=== PATIENT | female | born 1975 | race Caucasian/White ===

== ENCOUNTER 2023-04-13 06:36 | Inpatient (IN) | payer OTHER, SELFPAY ==
[2023-04-03 09:24] VITALS: BMI 30.4
[2023-04-03 10:17] LABS: INR 0.95; PT 12.9 Sec (11.4-14.6)
[2023-04-03 10:48] LABS: ALT (SGPT) 29 U/L (0-35); AST (SGOT) 25 U/L (14-36); Albumin 4.4 g/dl (3.5-5.0); Alkaline Phosphatase 87 U/L (38-126); Blood Urea Nitrogen 16 mg/dl (7-17); Calcium 9.5 mg/dl (8.4-10.2); Carbon Dioxide 28 mmol/L (22-30); Chloride 100 mmol/L (98-107); Estimated Creatinine Clearance 102 ml/min; Glucose 91 mg/dl (70-99); HDL Cholesterol 47 mg/dl; LDL Cholesterol, Calculated 126 mg/dl; Potassium 4.4 mmol/L (3.5-5.1); Sodium 138 mmol/L (135-145); Total Bilirubin 0.9 mg/dl (0.2-1.3); Total Cholesterol 222 mg/dl (50-199); Total Protein 7.7 g/dl (6.3-8.2); Triglyceride 248 mg/dl (10-149); Very Low Density Lipoprotein 49 mg/dl (0-30); eGFR > 60.00
[2023-04-03 11:04] LABS: Hematocrit 39.4 % (37.0-47.0); Hemoglobin 13.2 g/dL (12.0-16.0); Mean Corp Hgb Conc. 33.5 g/dL (33.0-37.0); Mean Corpuscular Volume 83.5 fL (81.0-99.0); Platelet Count 398 10^3/uL (130-400); Red Blood Cell Count 4.72 10^6/uL (4.20-5.40); Red Cell Dist. Width 13.4 % (11.5-14.5); White Blood Cell Count 6.8 10^3/uL (4.8-10.8)
[2023-04-03 11:14] LABS: Glycohemoglobin (HgbA1c) 5.9 % (4.0-5.6)
[2023-04-03 11:25] LABS: TSH Reflex To Free T4 1.04 uIU/ml (0.47-4.68)
[2023-04-13] VITALS (8 sets, daily range): BP systolic 0–133; BP diastolic 55–83; BMI 30.4
[2023-04-13] MEDS: NORMOSOL-R 1000 IV (11:27)
[2023-04-13] MEDS: ENTEREG 12 MG PO (11:29)
[2023-04-13] MEDS: NEURONTIN 600 MG PO (11:29)
[2023-04-13] MEDS: TYLENOL 1000 MG PO (11:29)
[2023-04-13] MEDS: HEPARIN 5000 UNITS SC (11:29)
--- NOTE | 2023-04-13 15:40 | W.IMMPOSTOP ---
Addendum entered and electronically signed by Yohannes Dowling MD 04/13/23 16:21:
Patient's , Sharad, updated via phone conversation.
Original Note:
Surgical Immed Post Op Note
-
Primary Surgeon: Nichole Dowling MD
Assisting Surgeon: MICHELLE Olivarez
Pre-op Diagnosis: sigmoid diverticulitis
Post-op Diagnosis: same
Procedure Performed: 1) robotic sigmoidectomy 2) flexible sigmoidoscopy
Anesthesia Type: general plus local
Specimen / Cultures: sigmoid colon
Estimated Blood Loss: 25 cc
Complications: no immediate
Operative Findings: distal sigmoid erythema/thickening
#19 Adal in pelvis.
Lockett in bladder.
Will send to med surg.
[2023-04-13] MEDS: D5LR 1000 IV (17:05)
[2023-04-13 17:11] LABS: % Basophils 0.1 % (0-2); % Eosinophils 0.1 % (0-6); % Immature Granulocytes 0.4 % (0-0.5); % Lymphocytes 2.8 % (20.5-51.1); % Monocytes 1.6 % (1.7-9.3); Absolute Immature Granulocytes 0.1 10^3/uL (0-0.05); Absolute Lymphocytes 0.5 10^3/uL (1.2-3.4); Absolute Monocytes 0.3 10^3/uL (0.1-0.6); Absolute Neutrophils 18.1 10^3/uL (1.4-6.5); Hematocrit 35.1 % (37.0-47.0); Mean Corp Hgb Conc. 34.2 g/dL (33.0-37.0); Mean Corpuscular Volume 84.8 fL (81.0-99.0); Nucleated Red Blood Cells % 0.1 %; Platelet Count 328 10^3/uL (130-400); Red Blood Cell Count 4.14 10^6/uL (4.20-5.40); Red Cell Dist. Width 13.4 % (11.5-14.5)
[2023-04-13 17:49] LABS: Blood Urea Nitrogen 8 mg/dl (7-17); Calcium 7.4 mg/dl (8.4-10.2); Carbon Dioxide 20 mmol/L (22-30); Chloride 101 mmol/L (98-107); Estimated Creatinine Clearance 119 ml/min; Glucose 165 mg/dl (70-99); Magnesium 2.6 mg/dl (1.6-2.3); Potassium 3.4 mmol/L (3.5-5.1); Sodium 133 mmol/L (135-145); eGFR > 60.00
[2023-04-13] MEDS: TORADOL 15 MG IV ×2 (17:51→23:50)
[2023-04-13] MEDS: ZOFRAN 4 MG IV (17:52)
--- NOTE | 2023-04-13 18:12 | PTCARENOTE ---
Patient admitted from [facility] post robotic sigmoidectomy secondary to diverticulitis.Vital signs are stable.The patient rates her pain at a 5 out of 10.All incisions are open to air with glue with no drainage.The patient is drowsy but arousable.Patient
complains of nausea after arriving to her room.Zofran was given as ordered.The patient is in her bed with the call zamora.
[2023-04-13] MEDS: TYLENOL 650 MG PO (21:43)
[2023-04-13] MEDS: MORPHINE SULFATE 2 MG IV (21:43)
[2023-04-13] MEDS: TYLENOL PO (23:45)
[2023-04-14] MEDS: D5LR 1000 IV (02:04)
[2023-04-14 03:00] VITALS: BP 101/60
[2023-04-14] MEDS: TYLENOL 650 MG PO ×5 (03:31→21:13)
[2023-04-14] MEDS: TORADOL 15 MG IV ×4 (05:55→23:40)
[2023-04-14 06:00] VITALS: BMI 30.2
[2023-04-14 06:29] LABS: % Basophils 0.1 % (0-2); % Immature Granulocytes 0.5 % (0-0.5); % Lymphocytes 4.9 % (20.5-51.1); % Monocytes 5.2 % (1.7-9.3); % Neutrophils 89.3 % (42.2-75.2); Absolute Immature Granulocytes 0.1 10^3/uL (0-0.05); Absolute Lymphocytes 0.7 10^3/uL (1.2-3.4); Absolute Monocytes 0.7 10^3/uL (0.1-0.6); Absolute Neutrophils 11.9 10^3/uL (1.4-6.5); Hematocrit 32.1 % (37.0-47.0); Hemoglobin 11.1 g/dL (12.0-16.0); Mean Corp Hgb Conc. 34.6 g/dL (33.0-37.0); Mean Corpuscular Hgb 28.5 pg (27.0-31.0); Mean Corpuscular Volume 82.3 fL (81.0-99.0); Mean Platelet Volume 9.1 fL (7.4-10.4); Nucleated Red Blood Cells % 0 %; Platelet Count 311 10^3/uL (130-400); Red Cell Dist. Width 13.8 % (11.5-14.5); White Blood Cell Count 13.3 10^3/uL (4.8-10.8)
--- NOTE | 2023-04-14 06:43 | PTCARENOTE ---
Pt ambulated short distance in campo. Tolerated well. Reports pain as tolerable. NEREIDA drain maintained. Lockett draining clear yellow. IVF infusing without incident. Tolerating sips/ice chips. Call zamora within reach. Will continue to closely
monitor.
[2023-04-14 07:01] LABS: Blood Urea Nitrogen 7 mg/dl (7-17); Calcium 8.2 mg/dl (8.4-10.2); Carbon Dioxide 24 mmol/L (22-30); Chloride 100 mmol/L (98-107); Estimated Creatinine Clearance 118 ml/min; Glucose 143 mg/dl (70-99); Magnesium 2.3 mg/dl (1.6-2.3); Potassium 4.1 mmol/L (3.5-5.1); Sodium 134 mmol/L (135-145); eGFR > 60.00
[2023-04-14 08:00] VITALS: BP 105/51
[2023-04-14] MEDS: PROTONIX 40 MG PO (08:42)
--- NOTE | 2023-04-14 09:49 | W.PN.CRS1 ---
Addendum entered and electronically signed by Yohannes Dowling MD 04/14/23 13:15:
Of note, patient has mild hyponatremia.
Addendum entered and electronically signed by Yohannes Dowling MD 04/14/23 13:11:
I saw and examined the patient.
The PA's note was reviewed and I agree with the note.
Comment:
Patient seen in a.m. with PA.
No complaints. In good spirits. Thirsty.
Vitals reasonable. White count 13.3. Hemoglobin 11.1.
Abdomen mildly distended. Incisions look good. NEREIDA with serosanguineous fluid.
Out of bed.
DC Peres.
Start Lovenox.
Original Note:
Today's Communication / Plan
-
d/c peres
clears
lovenox
Assessment/Plan
-
POD#1 1) robotic sigmoidectomy 2) flexible sigmoidoscopy
1. Vitals normal.
2. WBC 13.3 - as expected post op.
3. Continue NEREIDA drain until discharge.
4. OOB as tolerated.
5. Start on a clear liquid diet.
6. D/C peres.
7. OR pathology pending.
8. Pain medication: Tylenol/Toradol standing, morphine PRN.
Subjective Data
Procedure
04/13/2023 - 1) robotic sigmoidectomy 2) flexible sigmoidoscopy
Subjective Data
Date of Service: April 14, 2023
Patient states she is thirsty. She denies nausea or vomiting. Her pain is controlled. She has no complaints.
Objective Data
-
Vital Signs
Temp Pulse Resp BP Pulse Ox
98.4 F 77 16 105/51 95
04/14/23 08:00 04/14/23 08:00 04/14/23 08:00 04/14/23 08:00 04/14/23 08:00
Intake & Output
04/13/23 04/14/23 04/15/23
06:59 06:59 06:59
Intake Total 1640 / 1640
Output Total 3210 / 3210
Balance -1570 / -1570
Intake:
Oral fluids 240 / 240
IV fluids (Total) 1400 / 1400
Normosol 200 / 200
Output:
Drain Output (Total) 85 / 85
Right Lower Abdomen 85 / 85
Urine, Peres 3125 / 3125
Lab Results
04/14/23 05:30
04/14/23 05:30
Physical Exam
-
General: No Acute Distress and AOx3
Abdomen: Soft, Non Distended and Non Tender
Skin: Warm and Dry
Incision: Clear, Dry, Intact
--- NOTE | 2023-04-14 10:22 | CM ---
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
Pharmacy is [facility] in [place] and PCP is Dr. Bessy Pineda. She does not have POA or advanced directive. Anticipate home with no needs. Patient in agreement.
[2023-04-14 11:23] VITALS: BP 105/60
--- NOTE | 2023-04-14 12:12 | PN.CDI ---
CDI
- -
CDI:
Physician Documentation Request
Admit Date: 04/13/23 06:36
Dear Doctor /PA,
Please review the following and provide your response in the progress notes.
Clinical Indicators:
Pt admitted with scheduled Sigmoidectomy for sigmoid diverticulitis
Sodium levels are as below /Pt did get IVFs/ D5LR IVFs
04/13/23 04/14/23
16:57 05:30
Sodium 133 L 134 L
Based on the above, could you clarify in the progress notes, the appropriate diagnosis, if significant, that supports the above abnormalities and additional evaluation, monitoring and/or treatment rendered:
Hyponatremia
Abnormal lab value only
Other
Use of terms such as suspected, likely, concern for, or probable (associated with a specific diagnosis that is being evaluated, monitored, or treated as if it exists) are acceptable and can be coded in the inpatient setting, when documented at the
time of discharge.
Thank you,
Lola Smyth RN
CDI Specialist
[place] [facility]
Please use your independent medical judgment in providing your response.
[2023-04-14] MEDS: D5LR IV ×2 (12:26→23:39)
[2023-04-14 15:47] VITALS: BP 115/61
[2023-04-14] MEDS: LOVENOX 40 MG SC (17:26)
[2023-04-14 23:30] VITALS: BP 121/59
[2023-04-14] MEDS: FLUSH (NSS) 2 FLUSH IV (23:39)
[2023-04-15] MEDS: TYLENOL PO (01:34)
[2023-04-15] MEDS: TYLENOL 650 MG PO ×6 (03:36→23:29)
[2023-04-15 05:24] VITALS: BMI 29.9
[2023-04-15] MEDS: TORADOL 15 MG IV ×4 (05:38→23:29)
[2023-04-15] MEDS: FLUSH (NSS) 2 FLUSH IV ×2 (05:39→23:28)
[2023-04-15] MEDS: MYLICON 80 MG PO (06:03)
[2023-04-15 06:26] LABS: % Basophils 0.3 % (0-2); % Eosinophils 0.5 % (0-6); % Immature Granulocytes 0.3 % (0-0.5); % Lymphocytes 18.8 % (20.5-51.1); % Neutrophils 73.1 % (42.2-75.2); Absolute Eosinophils 0.1 10^3/uL (0-0.7); Absolute Lymphocytes 1.9 10^3/uL (1.2-3.4); Absolute Monocytes 0.7 10^3/uL (0.1-0.6); Absolute Neutrophils 7.3 10^3/uL (1.4-6.5); Hematocrit 33.3 % (37.0-47.0); Mean Corpuscular Hgb 28.4 pg (27.0-31.0); Mean Platelet Volume 9.6 fL (7.4-10.4); Nucleated Red Blood Cells % 0 %; Platelet Count 305 10^3/uL (130-400); Red Blood Cell Count 3.87 10^6/uL (4.20-5.40)
--- NOTE | 2023-04-15 06:29 | PTCARENOTE ---
Patient ambulating throughout halls. NEREIDA draining serosang fluid. Patient voiding well. She is tolerating clear liquids. C/o gas pain this am. Simethicone as per order by RICKY, [facility].
[2023-04-15 07:51] VITALS: BP 129/69
[2023-04-15] MEDS: PROTONIX 40 MG PO (07:54)
--- NOTE | 2023-04-15 08:59 | W.PN.CRS1 ---
Today's Communication / Plan
-
Continue clears for now
Reassess later today
Assessment/Plan
-
POD#2 1) robotic sigmoidectomy 2) flexible sigmoidoscopy
1. Vitals normal.
2. WBC 10.0, normalized.
3. Continue NEREIDA drain until discharge.
4. OOB as tolerated.
5. Continue on a clear liquid diet this morning. Will reevaluate early afternoon.
6. Voiding post Lockett removal
7. OR pathology pending.
8. Pain medication: Tylenol/Toradol standing, change morphine IV as needed.
9. Of note, the patient had slight hyponatremia postoperatively, with a sodium of 133.
Subjective Data
Procedure
04/13/2023 - 1) robotic sigmoidectomy 2) flexible sigmoidoscopy
Subjective Data
Date of Service: April 15, 2023
Patient states she feels some mild pain around her incisions. She feels bloated. She has no nausea or vomiting. She states she has some flatus when she lays down. She has no bowel movements yet.
Objective Data
-
Vital Signs
Temp Pulse Resp BP Pulse Ox
98.1 F 70 18 129/69 96
04/15/23 07:51 04/15/23 07:51 04/15/23 07:51 04/15/23 07:51 04/15/23 07:51
Intake & Output
04/14/23 04/15/23 04/16/23
06:59 06:59 06:59
Intake Total 1640 / 1640 1440 / 1440
Output Total 3210 / 3210 2037
Balance -1570 / -1570 -598 / -598
Intake:
Oral fluids 240 / 240 1440 / 1440
IV fluids (Total) 1400 / 1400
Normosol 200 / 200
Output:
Drain Output (Total)
Right Lower Abdomen
Urine, Lockett 3125 / 3125 1600 / 1600
Urine, Voided 400 / 400
Other:
Number of approximated MODERATE 3
amounts of urine
Lab Results
04/15/23 05:22
04/14/23 05:30
Physical Exam
-
General: No Acute Distress and AOx3
Abdomen: Soft, Distended (Slight), Non Tender and Other (NEREIDA drain with serous output)
Skin: Warm and Dry
Incision: Clear, Dry, Intact
[2023-04-15 15:30] VITALS: BP 115/74
[2023-04-15] MEDS: LOVENOX SC (17:34)
[2023-04-15 23:30] VITALS: BP 120/68
[2023-04-16] MEDS: TYLENOL 650 MG PO ×3 (03:08→13:13)
[2023-04-16 06:00] VITALS: BMI 29.4
[2023-04-16] MEDS: FLUSH (NSS) 2 FLUSH IV (06:15)
[2023-04-16] MEDS: TORADOL 15 MG IV ×2 (06:15→13:13)
[2023-04-16 07:45] VITALS: BP 126/78
[2023-04-16] MEDS: PROTONIX 40 MG PO (08:44)
--- NOTE | 2023-04-16 10:28 | PTCARENOTE ---
pt frequently walks halls, eligio n/v belly still a little distended,no bm, passing gas upgraded to Low residue, pain controlled APAP and Toradol. NEREIDA drain removed. TGH if tolerates
--- NOTE | 2023-04-16 11:39 | W.PN.CRS1 ---
Today's Communication / Plan
-
low residue
discharge
Assessment/Plan
-
POD#3 1) robotic sigmoidectomy 2) flexible sigmoidoscopy
1. Vitals normal.
2. NEREIDA drain discontinued at bedside.
3. Advance diet to low residue.
4. OOB as tolerated.
5.� Continue on a clear liquid diet this morning.� Will reevaluate early afternoon.
6.�OR pathology pending.
7. Pain medication: Tylenol/Toradol standing, Morphine PRN.
8. Okay for discharge today. All discharge instructions discussed with patient including medications, activity levels and follow up. All questions answered.
Subjective Data
Procedure
04/13/2023 - 1) robotic sigmoidectomy 2) flexible sigmoidoscopy
Subjective Data
Date of Service: April 16, 2023
Patient states she has flatus. She is walking around the halls. She feels well. Her pain is controlled. She is tolerating a diet.
Objective Data
-
Vital Signs
Temp Pulse Resp BP Pulse Ox
98.4 F 80 18 126/78 98
04/16/23 07:45 04/16/23 07:45 04/16/23 07:45 04/16/23 07:45 04/16/23 07:45
Intake & Output
04/15/23 04/16/23 04/17/23
06:59 06:59 06:59
Intake Total 1440 / 1440 1979
Output Total 2037
Balance -598 / -598 1889
Intake:
Oral fluids 1440 / 1440 1979
Output:
Drain Output (Total)
Right Lower Abdomen
Urine, Lockett 1600 / 1600
Urine, Voided 400 / 400
Other:
Number of approximated SMALL 1
amounts of urine
Number of approximated MODERATE 3 4
amounts of urine
Lab Results
04/15/23 05:22
04/14/23 05:30
Physical Exam
-
General: No Acute Distress and AOx3
Abdomen: Soft, Non Distended, Non Tender and Other (NEREIDA drain serous)
Incision: Clear, Dry, Intact
--- NOTE | 2023-04-16 11:46 | W.DS.TRANS ---
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
-
Discharge Instructions:
Sleep Apnea Risk Low
Discharge Diagnosis/Procedures s/p robotic sigmoidectomy
Diet Low Residue
Activity No strenuous activity
Additional Activity No lifting over 10lbs
Driving Restrictions Not until seen by your Dr
Bathing Restrictions OK to Shower
Wound Care Allow glue to naturally fall off. Do not pick at
incisions.
Instructions: Low Fiber Diet
Stand-Alone Forms:
Changes to Home Medications: Yes
Discharge Medications:
DC Medications w/original date entered in [employer]
Vitamin C: 1 tab PO DAILY Supplement 05/04/21
acetaminophen 325 mg tablet (Tylenol) 650 mg PO Q6H PRN pain 04/11/23
multivitamin 1 tab PO DAILY Supplement 04/11/23
acetaminophen 300 mg-codeine 15 mg tablet 1 tab PO Q6H PRN Pain #20 tabs 04/16/23
Home Medication Changes
acetaminophen 300 mg-codeine 15 mg tablet 1 tab PO Q6H PRN Pain #20 tabs 04/16/23
Pending Results: Yes
Additional Pending Results:
OR pathology
--- NOTE | 2023-04-16 13:30 | CM ---
Chart reviewed plan is home today no needs.
Plan; Home no needs.
--- NOTE | 2023-04-16 15:17 | PTCARENOTE ---
pt left with out signing d/c. no issues thir were just many questions from family members and questions where to go, dressings etc
== END 2023-04-16 15:19 | disposition home or self-care (01) | DRG 330 ==
LOC: 2 SOUTH 06:36
PROVIDERS: Physician Assistant; ADMITTING PHYSICIAN Surgery; FAMILY PHYSICIAN Nurse Practitioner Family
PROC: 0DTN0ZZ Resection of Sigmoid Colon, Open Approach (ICD-10-PCS; 2023-04-14)
PROC: 8E0W0CZ Robotic Assisted Procedure of Trunk Region, Open Approach (ICD-10-PCS; 2023-04-14)
DX: K57.32 Diverticulitis of large intestine without perforation or abscess without bleeding (principal); D62 Acute posthemorrhagic anemia; E87.1 Hypo-osmolality and hyponatremia
CPT/HCPCS: 88307; 36415; 80048; 80053; 80061; 83036; 83735; 84443; 85025; 85027; 85610; 85730; 86850; 86900; 86901; 93005; J1335

== ENCOUNTER 2023-10-04 10:32 | Day surgery (SDC) | payer OTHER, SELFPAY ==
[2023-10-04] VITALS (9 sets, daily range): BP systolic 118–139; BP diastolic 64–85; BMI 31.5
--- NOTE | 2023-10-04 09:06 | ED.GENMED ---
History of Present Illness
General
Chief Complaint: Throat Problem
Source: patient
Exam Limitations: none
Time Seen by Provider: 10/04/23 08:42
Nursing documentation reviewed up to this point in time: agreed with
History of Present Illness
History of Present Illness:
48 y/o F with h/o hiatal hernia, divertic s/p lap sigmoidectomy, previuos food bolus
here after eating pork last night, felt it was small enough to pass but then drank water right after and says she coughed while drinking and since then she cannot really tolerate liquids
she brought up the water in her mouth and spit it out.
now when she tries to drink, she feels it sitting in her chest, cold feeling
she has not had any regurgitation but she did gag while brushing her teeth
she has had issues like this before and required endoscopy
dr. wilkins is her GI
she called and left message
no fever, coughing, sob
Past History
Past History
ED Past Medical History: GERD and Other (Diverticulitis)
ED Past Surgical History:
Social History
Tobacco: Non-smoker
Alcohol: None
Drug: None
Personal:
Living: with family
Review of Systems
Review of Systems
Allergies reviewed?: Yes
All Other Systems: Not applicable
Phy Exam
Physical Exam
Physical Exam:
GENERAL: Alert , in no apparent distress, speaking full sentences
EYE: pupils equal and reactive
NECK: Supple
ENT: o/p clr, mmm.
CARDIAC: Regular rate and rhythm .
LUNGS: Clear breath sounds bilaterally, no acute respiratory distress, no wheezes/rales/rhonchi
ABDOMEN: Soft, without focal tenderness, no r/g, no cvat, normal bowel sounds
NEUROLOGICAL: Alert and oriented, no focal neuro deficits
SKIN: Warm and dry, skin intact.
MUSCULOSKELETAL: No edema, well perfused. neg nida's sign
PSYCH: Normal and appropriate interaction.
Course
Orders/Labs/Results
Orders:
Orders
10/04/23 08:51
Glucagon [GlucaGen] 1 mg IV NOW STA
10/04/23 08:52
Electrocardiogram (*1) Urgent
Reason for Study: Chest Pain
EKG- Treatment ONCE
CR Chest - 2 Views Urgent
Comment:
Reason For Exam: SWALLOWED PORK, ? ASPIRATION VS. FOOD BOLUS
10/04/23 09:04
Complete Blood Count/With Diff Urgent
Comprehensive Metabolic Panel Urgent
10/04/23 09:39
Propofol [Diprivan] 60 ml .ROUTE .STK-MED
Succinylcholine Chloride [Succinylcholine] 200 mg .ROUTE .STK-MED ONE
Abnormal Lab Results
10/04/23
09:04
Abs Immat Gran (auto) 0.1 H 10^3/uL
(0-0.05)
Immature Gran % 0.7 H %
(0-0.5)
Lymphocytes % 16.6 L %
(20.5-51.1)
10/04/23 09:04
10/04/23 09:04
Vital Signs
Initial and Last Documented VS:
Initial Vital Signs
Temp Pulse Resp BP Pulse Ox
97.7 F 81 16 130/85 98
10/04/23 08:37 10/04/23 08:37 10/04/23 08:37 10/04/23 08:37 10/04/23 08:37
Last Documented Vital Signs
Temp Pulse Resp BP Pulse Ox
97.7 F 81 16 139/85 97
10/04/23 08:37 10/04/23 08:37 10/04/23 08:37 10/04/23 09:14 10/04/23 09:15
MDM/Problems Addressed
Differential Diagnosis Includes:
Food bolus impaction, aspiration
MDM/Problems Addressed:
48-year-old female with a history of hiatal hernia and previous esophageal food bolus requiring an endoscopy presents for symptoms similar to her last food bolus
After eating pork last night. Patient says she drank some water immediately following that and then coughed slightly and since has not felt right. When she tries to drink she feels that getting stuck in her upper chest. It feels cold as well.
She has gagged a few times but has not fully regurgitated. She has not otherwise really tried to tolerate anything p.o. This feels very similar to the time she needed to have an endoscopy. She is not coughing or feeling short of breath. On exam
she is well-appearing, not uncomfortable, tolerating her secretions well, heart and lung sound clear. I watched her swallow several ounces of water and her voice got a little bit deeper and she felt uncomfortable but she had no regurgitation.
Patient did have some nausea following that as well. Patient received a dose of IV glucagon with no improvement. I spoke with the GI attending Dr.k tsang who will take the patient to the GI lab.
Patient's chest x-ray was independently reviewed by me and negative for any signs of aspiration pneumonia
*Critical Care Note
Total Time (30-74mins, 75-104mins- exclusive of procedures): Not Applicable
ED Attending Note
-
Portions of this chart may have been created with voice recognition software.� Occasional wrong word or��sound alike� substitutions may have occurred due to the inherent limitations of voice recognition software.
Discharge Plan
Departure
Patient Disposition: GI LAB
Date of Disposition: 10/04/23
Time of Disposition: 09:45
Admit to: GI lab
Presentation/result/management discussed w/ accepting MD/DO: ronak
Patient with high blood pressure during this ER visit?: No
Covid-19: Not Applicable
Discharge Problem:
Food bolus obstruction of intestine
Prescriptions:
No Action
Vitamin C:
1 tab PO DAILY
multivitamin Tablet
1 tab PO DAILY
acetaminophen [Tylenol] 325 mg Tablet
650 mg PO Q6H PRN (Reason: pain)
acetaminophen-codeine 300-15 mg tablet
1 tab PO Q6H PRN (Reason: Pain) Qty: 20 0RF
Referrals:
Bessy Pineda CRNP [Family Provider] -
Interventions
Interventions:
*Risk Screen - Suicide Last Done: 10/04/23 09:22
*Neglect/Abuse Screening Last Done: 10/04/23 09:22
ED-EENT Assessment Last Done: 10/04/23 09:22
ED- Pulmonary Assessment Last Done: 10/04/23 09:23
Discharge Date and Time
Print Language: TAMAZIGHT
[2023-10-04] MEDS: GlucaGen 1 MG IV (09:15)
[2023-10-04 09:21] LABS: % Basophils 0.9 % (0-2); % Eosinophils 3.9 % (0-6); % Immature Granulocytes 0.7 % (0-0.5); % Lymphocytes 16.6 % (20.5-51.1); % Monocytes 5.5 % (1.7-9.3); % Neutrophils 72.4 % (42.2-75.2); Absolute Basophils 0.1 10^3/uL (0-0.2); Absolute Eosinophils 0.3 10^3/uL (0-0.7); Absolute Immature Granulocytes 0.1 10^3/uL (0-0.05); Absolute Lymphocytes 1.3 10^3/uL (1.2-3.4); Absolute Monocytes 0.4 10^3/uL (0.1-0.6); Absolute Neutrophils 5.8 10^3/uL (1.4-6.5); Hematocrit 37.5 % (37.0-47.0); Hemoglobin 12.6 g/dL (12.0-16.0); Mean Corp Hgb Conc. 33.6 g/dL (33.0-37.0); Mean Corpuscular Hgb 27.6 pg (27.0-31.0); Mean Corpuscular Volume 82.2 fL (81.0-99.0); Mean Platelet Volume 8.9 fL (7.4-10.4); Nucleated Red Blood Cells % 0 %; Platelet Count 343 10^3/uL (130-400); Red Blood Cell Count 4.56 10^6/uL (4.20-5.40); Red Cell Dist. Width 12.9 % (11.5-14.5); White Blood Cell Count 8.1 10^3/uL (4.8-10.8)
[2023-10-04 09:33] LABS: ALT (SGPT) 16 U/L (0-35); AST (SGOT) 20 U/L (14-36); Albumin 4.6 g/dl (3.5-5.0); Alkaline Phosphatase 92 U/L (38-126); Blood Urea Nitrogen 12 mg/dl (7-17); Calcium 9.1 mg/dl (8.4-10.2); Carbon Dioxide 23 mmol/L (22-30); Chloride 104 mmol/L (98-107); Estimated Creatinine Clearance 101 ml/min; Glucose 95 mg/dl (70-99); Sodium 138 mmol/L (135-145); Total Bilirubin 0.8 mg/dl (0.2-1.3); Total Protein 7.4 g/dl (6.3-8.2); eGFR > 60.00
--- NOTE | 2023-10-04 10:05 | CON.GI ---
Consultation
-
Date/Time Consultation Requested: 10/04/2023
Date/Time Consultation Performed: 10/04/2023
Requesting Provider: ED
Performing Provider: [place]
Reason for Consultation: food imapction
Medical History
Chief Complaint / HPI
Chief Complaint: food impaction
History of Present Illness:
48 y/o F with h/o EoE not on any Rx, hiatal hernia, diverticular disease s/p lap sigmoidectomy, prior food bolus here c/o after eating pork last night, felt it got caught in the middle of her chest . Unable to tolerate liquid,.
Denies any chest pain/ SOB
Past Medical History
Past Medical History: Other (eoe, diverticular disease )
Allergies / Home Medications
Allergy/AdvReac Type Severity Reaction Status Date / Time
ciprofloxacin [From Cipro] Allergy heart Verified 10/04/23 08:39
palpitations
oxycodone [From Percocet] Allergy Rash Verified 10/04/23 08:39
tramadol [From Ultram] Allergy butterfly Verified 10/04/23 08:39
Rash
�Medication �Instructions �Recorded
Vitamin C: 1 tab PO DAILY Supplement 05/04/21
acetaminophen 325 mg tablet 650 mg PO Q6H PRN pain 04/11/23
(Tylenol)
multivitamin 1 tab PO DAILY Supplement 04/11/23
acetaminophen 300 mg-codeine 15 mg 1 tab PO Q6H PRN Pain #20 tabs 04/16/23
tablet
Review of Systems
-
All other systems: A 12 pt ROS was Negative except as stated above in HPI
Vital Signs
Temp Pulse Resp BP Pulse Ox
97.7 F 81 16 139/85 96
10/04/23 08:37 10/04/23 08:37 10/04/23 08:37 10/04/23 09:14 10/04/23 09:30
Physical Exam
Exam
General: Well Developed and No Apparent Distress
Respiratory: Clear
Cardiac: S1/S2
GI: Soft, Non Tender, Non Distended and Normal Bowel Sounds
Results
WBC 8.1 10^3/uL (4.8-10.8) 10/04/23 09:04
Hgb 12.6 g/dL (12.0-16.0) 10/04/23 09:04
Hct 37.5 % (37.0-47.0) 10/04/23 09:04
MCV 82.2 fL (81.0-99.0) 10/04/23 09:04
Plt Count 343 10^3/uL (130-400) 10/04/23 09:04
Absolute Neuts (auto) 5.8 10^3/uL (1.4-6.5) 10/04/23 09:04
Sodium 138 mmol/L (135-145) 10/04/23 09:04
Potassium 4.0 mmol/L (3.5-5.1) 10/04/23 09:04
Chloride 104 mmol/L (98-107) 10/04/23 09:04
Carbon Dioxide 23 mmol/L (22-30) 10/04/23 09:04
BUN 12 mg/dl (7-17) 10/04/23 09:04
Creatinine 0.7 mg/dL (0.6-1.0) 10/04/23 09:04
Calcium 9.1 mg/dl (8.4-10.2) 10/04/23 09:04
Total Bilirubin 0.8 mg/dl (0.2-1.3) 10/04/23 09:04
AST 20 U/L (14-36) 10/04/23 09:04
ALT 16 U/L (0-35) 10/04/23 09:04
Alkaline Phosphatase 92 U/L (38-126) 10/04/23 09:04
Diagnostic Image Results:
Prior GI Procedures:
EGD: 2022 with - bx- suggestuive of EoE
Colonoscopy:
Assessment / Plan
-
48 y/o female with hx of EoE with food impaction after eating dinner last night.
--Food impaction/ EoE
plan
urgent EGD
Total Time Spent with Patient (in minutes): 55
-
-
Thank you for consultation and allowing me to participate in the patient's care. Please call the honest john rocket crew member GI physician during the after hours with any questions or concerns.
== END 2023-10-04 12:25 | disposition home or self-care (01) ==
LOC: GI 10:32
PROVIDERS: Physician Assistant; ATTENDING PHYSICIAN Internal Medicine Gastroenterology; EMERGENCY PHYSICIAN Emergency Medicine; FAMILY PHYSICIAN Nurse Practitioner Family
DX: T18.128A Food in esophagus causing other injury, initial encounter (principal); W44.F3XA Food entering into or through a natural orifice, initial encounter; K20.0 Eosinophilic esophagitis; K31.7 Polyp of stomach and duodenum; K56.699 Other intestinal obstruction unspecified as to partial versus complete obstruction; Z87.19 Personal history of other diseases of the digestive system
CPT/HCPCS: 43247; 71046; 80053; 85025; 93005; 96374; 99284; J1610

== ENCOUNTER → 2024-01-22 11:39 | Outpatient (REF) | payer OTHER, SELFPAY | LOC: HWWDC 11:39 | PROVIDERS: ATTENDING PHYSICIAN Nurse Practitioner Family; REFERRING PHYSICIAN Obstetrics & Gynecology | DX: Z12.31 Encounter for screening mammogram for malignant neoplasm of breast (principal) | CPT/HCPCS: 77063; 77067 ==

== ENCOUNTER → 2024-02-06 09:23 | Outpatient (REF) | payer OTHER, SELFPAY | LOC: WDC 09:23 | PROVIDERS: ATTENDING PHYSICIAN Nurse Practitioner Family | DX: R92.8 Other abnormal and inconclusive findings on diagnostic imaging of breast (principal) | CPT/HCPCS: 76642 ==